=== PATIENT | female | born 1980 | race African-American/Black ===

== ENCOUNTER 2020-05-19 01:11 | Emergency (ER) | payer BC ==
[~2020-05-19] VITALS: Ht 177.8 cm; Wt 86.2 kg
--- NOTE | 2020-05-19 01:11 | NUR ---
PT BIB [facility], PREBOOK. TAKEN TO CHAIR C
--- NOTE | 2020-05-19 01:49 | NUR ---
PT REFUSED EKG AT THIS TIME. ZURI MUNGUIA MADE AWARE.
--- NOTE | 2020-05-19 01:55 | NUR ---
PT REFUSED ALL MEDICAL CARE. PT STATED "I DONT GIVE A FUCK ABOUT ANY OF THIS. I JUST WANT MY CAR AND MY MONEY. " ERMD MADE AWARE.
--- NOTE | 2020-05-19 02:00 | NUR ---
PATIENT BIB [facility]. PATIENT EXAMINED BY . PATIENT MEDICALLY CLEARED AND RELEASED IN CUSTODY IN STABLE CONDITION. ORIGINAL PRE-BOOK FORM GIVEN TO OFFICER MULUGETA, #[id number].
== END 2020-05-19 02:00 ==
LOC: MED 01:11
DX: R07.9 Chest pain, unspecified (principal); Z02.89 Encounter for other administrative examinations; V29.60XA Unspecified motorcycle rider injured in collision with unspecified motor vehicles in traffic accident, initial encounter; Y93.89 Activity, other specified; Y92.89 Other specified places as the place of occurrence of the external cause; Y99.8 Other external cause status
CPT/HCPCS: 99283